=== PATIENT | female | born 1975 | race African-American/Black ===

== ENCOUNTER 2017-05-15 17:41 | Emergency (ER) | payer SELFPAY ==
[~2017-05-15 17:41] MED LIST: PROMETRIUM; PROMETRIUM PO; [UNRECOGNIZED DRUG - REMARK]
== END 2017-05-15 19:46 | disposition home or self-care (01) ==
LOC: ER 17:41
DX: R51 Headache (principal); F17.200 Nicotine dependence, unspecified, uncomplicated; Z88.8 Allergy status to other drugs, medicaments and biological substances; Z88.1 Allergy status to other antibiotic agents; Z79.899 Other long term (current) drug therapy
CPT/HCPCS: 99283